=== PATIENT | male | born 1960 | race Caucasian/White ===

== ENCOUNTER 2020-09-03 18:36 | Emergency (ER) | payer MEDICARE, OTHER, SELFPAY ==
[~2020-09-03] VITALS: Ht 175.3 cm; Wt 110.3 kg
[2020-09-03 19:29] LABS: BASOPHILS % (AUTO) 1 % (0-1); EOSINOPHILS % (AUTO) 2 % (1-7); LYMPHOCYTES % (AUTO) 21 % (22-44); MEAN CORPUSCULAR HEMOGLOBIN 19.9 pg (27.5-34.5); MEAN PLATELET VOLUME 8.4 fL (7.4-10.4); MONOCYTES % (AUTO) 6 % (2-9); NEUTROPHILS % (AUTO) 70 % (42-75); PLATELET COUNT 381 x10^3/uL (130-400); RED BLOOD COUNT 4.65 x10^6/uL (4.38-5.82); RED CELL DISTRIBUTION WIDTH 20.8 % (9.4-14.8)
[2020-09-03 19:35] LABS: ALANINE AMINOTRANSFERASE 24 U/L (12-78); ALBUMIN 2.9 g/dL (3.4-5.0); ANION GAP 6 mmol/L (5-15); CALCIUM 8.8 mg/dL (8.5-10.1); CHLORIDE 107 mmol/L (98-107); CREATININE 1.41 mg/dL (0.7-1.3)
[2020-09-03 19:38] LABS: ALKALINE PHOSPHATASE 96 U/L (45-117); BILIRUBIN,TOTAL 0.3 mg/dL (0.2-1.0); TOTAL PROTEIN 7.1 g/dL (6.4-8.2)
[2020-09-03 19:43] LABS: MD MORPH REVIEW ONLY; MEAN CORPUSCULAR HGB CONC 28.9 g/dL (33.2-36.2)
[2020-09-03 20:12] LABS: <PLATELET ESTIMATE> ADEQUATE; <PLT MORPHOLOGY> NORMAL PLT MORPH; ANISOCYTOSIS 1+; MICROCYTOSIS 2+; POLYCHROMASIA 1+
[2020-09-03 20:13] LABS: OVALOCYTES 1+
--- NOTE | 2020-09-03 20:44 | NUR ---
CALLED FOR ROOM. NA X 1
[2020-09-03 20:49] VITALS: BP 130/94
--- NOTE | 2020-09-03 21:20 | NUR ---
NA X 2 FOR ROOM
--- NOTE | 2020-09-03 21:39 | NUR ---
PT NOT IN LOBBY X3
== END 2020-09-03 21:41 | disposition left against medical advice (07) ==
LOC: ED 19:06
DX: B34.9 Viral infection, unspecified (principal); R51.9 Headache, unspecified; M79.10 Myalgia, unspecified site; R00.0 Tachycardia, unspecified
CPT/HCPCS: 36415; 71045; 80053; 85025; 93005; 99285